=== PATIENT | female | born 1945 | race Caucasian/White ===

== ENCOUNTER 2021-10-01 10:54 | Outpatient (CLI) | payer MEDICARE | END 2021-10-01 10:55 | disposition home or self-care (01) | LOC: CSHMAMMO 10:54 | PROVIDERS: ATTEND Obstetrics & Gynecology | DX: Z12.31 Encounter for screening mammogram for malignant neoplasm of breast (principal) | CPT/HCPCS: 77063; 77067 ==

== ENCOUNTER 2022-01-06 15:12 | Outpatient (CLI) | payer MEDICARE | END 2022-01-06 15:13 | disposition home or self-care (01) | LOC: CSHRAD 15:12 | PROVIDERS: ATTEND Internal Medicine | DX: L29.9 Pruritus, unspecified (principal); Z80.1 Family history of malignant neoplasm of trachea, bronchus and lung | CPT/HCPCS: 36415; 71046; 82785; 83516; 85652; 86038; 86225 ==

== ENCOUNTER 2022-10-28 11:56 | Outpatient (CLI) | payer MEDICARE | END 2022-10-28 11:57 | disposition home or self-care (01) | LOC: CSHMAMMO 11:56 | PROVIDERS: ATTEND Obstetrics & Gynecology | DX: Z12.31 Encounter for screening mammogram for malignant neoplasm of breast (principal) | CPT/HCPCS: 77063; 77067 ==

== ENCOUNTER 2023-11-23 12:58 | Outpatient (CLI) | payer MEDICARE | END 2023-11-23 12:59 | disposition home or self-care (01) | LOC: CSHMAMMO 12:58 | PROVIDERS: ATTEND Obstetrics & Gynecology | DX: Z12.31 Encounter for screening mammogram for malignant neoplasm of breast (principal) | CPT/HCPCS: 77063; 77067 ==

== ENCOUNTER 2024-11-30 11:47 | Outpatient (CLI) | payer MEDICARE | END 2024-11-30 11:48 | disposition home or self-care (01) | LOC: CSHMAMMO 11:47 | PROVIDERS: ATTEND Obstetrics & Gynecology | DX: Z12.31 Encounter for screening mammogram for malignant neoplasm of breast (principal); M81.0 Age-related osteoporosis without current pathological fracture; M85.851 Other specified disorders of bone density and structure, right thigh; M85.852 Other specified disorders of bone density and structure, left thigh | CPT/HCPCS: 77063; 77067; 77080 ==